=== PATIENT | female | born 1955 | race Caucasian/White ===

== ENCOUNTER 2016-11-02 12:14 | Day surgery (SDC) | payer MEDICARE, BC ==
[~2016-11-02 12:14] MED LIST: CEFAZOLIN 2 Gram 2 GM/50 ML BAG IVPB ONE
[2016-11-02] MEDS ORDERED: *PACU ONLY* KETAMINE HCL 10 MG/ML (20ML) VIAL IV ONE (14:00)
[2016-11-02] MEDS ORDERED: FENTANYL PF 100MCG/2ML VIAL IV ONE (14:00)
[2016-11-02] MEDS ORDERED: SEVOFLURANE 250 ML INH ONE (14:00)
[2016-11-02] MEDS ORDERED: LIDOCAINE 2% MDV (20MG/ML) 20ML VIAL IV ONE (14:00)
[2016-11-02] MEDS ORDERED: TRAMADOL HCL 50 MG TABLET PO ONE (14:00)
[2016-11-02] MEDS ORDERED: PROPOFOL 10 MG/ML VIAL IV ONE (14:00)
--- NOTE | 2016-11-04 08:30 | Operative Note ---
DATE OF SURGERY: 11/02/2016. PREOPERATIVE DIAGNOSIS: Urethral stricture. POSTOPERATIVE DIAGNOSIS: Urethral stricture and bladder tumor. OPERATION: Cystoscopy, urethral dilatation, and bladder biopsy, removal and fulguration of bladder tumor 1 cm. Anesthesia: General. PROCEDURE: Preop informed consent was obtained. Antibiotics were given. Sedation was administered. The patient was brought to the operating room, given general anesthetic, carefully placed in lithotomy position with genitalia prepped and draped sterilely. Cystoscopy was then performed. I could not advance the 22 Libyan cystoscope into the urethra due to the stricture formation. Therefore, Ofelia sounds were then used to calibrate the urethra gently and carefully starting at size of [address] up to 28 Libyan, and once this was done, I was able to insert the cystoscope and inspect the bladder systematically. Upon this evaluation, there is an approximately 1 cm papillary bladder tumor seen at the left trigone lateral to the left ureteral orifice. The remainder of the bladder was unremarkable, except for some trabeculation. Cold cup biopsy forceps were used to remove the tumor in its entirety, and the area was then carefully fulgurated to achieve excellent hemostasis and tissue destruction. There was no remaining tumor left to be dealt with, and again the remainder of the urothelium showed no evidence of any other abnormality. The left orifice was kept unharmed and was effluxing clear urine at the end of the procedure. The bladder was emptied. Patient was transferred to recovery in stable condition. DISCHARGE INSTRUCTIONS: Patient will follow up to review pathology report and symptoms in 2 weeks. Lauri Ariza M.D. CC: R[facility]
== END 2016-11-02 16:05 | disposition home or self-care (01) ==
LOC: SUR 12:14
PROVIDERS: ATTEND Urology
DX: C67.0 Malignant neoplasm of trigone of bladder (principal); N35.028 Other post-traumatic urethral stricture, female; I10 Essential (primary) hypertension; E78.00 Pure hypercholesterolemia, unspecified
CPT/HCPCS: 52234; 00912; 88305; J3010; J0690

== ENCOUNTER 2017-02-01 12:54 | Day surgery (SDC) | payer MEDICARE, BC ==
[~2017-02-01 12:54] MED LIST changes: +FAMOTIDINE 20MG TABLET PO ONE; +MECLIZINE 25 MG TABLET PO ONE; +METOCLOPRAMIDE 10 MG TABLET PO ONE
[2017-02-01] MEDS ORDERED: ALFENTANIL HCL 500 MCG/1ML, 2ML AMP IV ONE (14:00)
[2017-02-01] MEDS ORDERED: *PACU ONLY* KETAMINE HCL 10 MG/ML (20ML) VIAL IV ONE (14:00)
[2017-02-01] MEDS ORDERED: PROPOFOL 10 MG/ML VIAL IV ONE (14:00)
--- NOTE | 2017-02-09 10:10 | Operative Note ---
DATE OF SURGERY: 02/01/2017 PREOPERATIVE DIAGNOSIS: Urethral stricture and bladder cancer. POSTOPERATIVE DIAGNOSIS: Urethral stricture and bladder cancer. OPERATION: Cystoscopy, urethral dilatation, and bilateral retrograde pyelograms. Anesthesia: Sedation. PROCEDURE: Preop informed consent was obtained. Antibiotics were given. Sedation was administered. The patient was brought to the operating room, placed in lithotomy position with genitalia prepped and draped sterilely. The urethra was already stenotic from her last procedure and required dilating with Lantigua sounds to 26 Swedish, which was done without difficulty. Cystoscopy could then be performed. The bladder was then carefully inspected. No abnormality was seen and the ureteral orifices had normal appearance and positioning. There was no evidence of any recurrent bladder tumor, and there is a well-healed site from prior TURBT. Bilateral retrograde pyelograms were performed injected contrast into both ureters and obtaining images through mobile C-arm fluoroscopy. Recognizing the limitations of mobile fluoroscopy in recognizing fine detail, there was no gross evidence of any upper tract filling defect, stricture, or dilatation, and drainage was prompt bilaterally. The bladder was then drained and the scope was removed. The procedure was terminated. The patient was transferred to recovery in stable condition. PLAN: The patient will be scheduled for her next surveillance in another 3 months for similar procedure. CC: Dr. Jayce NEGRO
== END 2017-02-01 16:00 | disposition home or self-care (01) ==
LOC: SUR 12:54
PROVIDERS: ATTEND Urology
DX: Z08 Encounter for follow-up examination after completed treatment for malignant neoplasm (principal); N35.9 Urethral stricture, unspecified; Z85.51 Personal history of malignant neoplasm of bladder; E78.00 Pure hypercholesterolemia, unspecified
CPT/HCPCS: 52005; 00910; 76000; J0690

== ENCOUNTER → 2017-12-12 | Day surgery (SDC) | payer MEDICARE, BC ==
[~2017-12-12] MED LIST changes: +ACETAMINOPHEN 1,000 MG/100 ML BTL IV ONE; +BUPIVACAINE 0.25% W/EPI MPF 30ML VIAL IVP ONE; +CEFAZOLIN 1 Gram 1 GM/50 ML BAG IVPB ONE; -CEFAZOLIN 2 Gram 2 GM/50 ML BAG IVPB ONE; -FAMOTIDINE 20MG TABLET PO ONE; +FENTANYL PF 100MCG/2ML VIAL IV ONE; +LIDOCAINE 1% MDV (10MG/ML) 20ML VIAL SQ ONE; -MECLIZINE 25 MG TABLET PO ONE; -METOCLOPRAMIDE 10 MG TABLET PO ONE; +MIDAZOLAM HCL 2MG/2ML VIAL IV ONE; +PROPOFOL 10 MG/ML VIAL IV ONE; +VANCOMYCIN HCL 1,000 MG in DEXTROSE 5 % IN WATER 250 ML IVPB ONE
--- NOTE | 2017-12-13 08:20 | Operative Note ---
DATE OF SURGERY: 12/12/2017 Surgeon: Tomy Alexander DO PREOPERATIVE DIAGNOSES: 1. Chronic low back pain. 2. Bilateral episacral lipomas. POSTOPERATIVE DIAGNOSES: 1. Chronic low back pain. 2. Bilateral episacral lipomas. OPERATION: Excision of bilateral upper epilipomas. Indication: The patient is a 62-year-old female who has had chronic low back pain. She did have bilateral episacral lipomas. We did discuss excision of these. Risks, benefits, and alternatives were discussed. Risks include bleeding, infection, the possibility that this will not alleviate her back pain. This was touched on and stressed in detail. The patient was aware. Thereafter, consent was signed and questions answered. PROCEDURE: The patient was taken to the operating room and placed in a supine position, rotated into prone position. Local IV sedation was given per the department of anesthesia. The patient's back was prepped and draped in the usual fashion. The area over each region was anesthetized with a total of 8 mL of 0.25% Sensorcaine with epinephrine. Starting on the patient's right, a 3 cm incision was made. This was carried down through the subcutaneous tissues to the fascia where a large episacral lipoma was encountered. This was dissected free from surrounding tissue with cautery and blunt dissection. This was 4 x 4 cm and passed off the field. The wound was then closed with 3-0 and 4-0 Vicryl. Attention was now turned to the patient's opposite side where an identical procedure was done. Pathology was the same as well as the size. She tolerated the procedure well. Final pathology pending. CC: [facility]kee [facility]
== END | disposition home or self-care (01) ==
LOC: SUR 11:54
PROVIDERS: ATTEND Surgery
DX: M54.5 Low back pain (principal); E78.00 Pure hypercholesterolemia, unspecified; I10 Essential (primary) hypertension; F43.10 Post-traumatic stress disorder, unspecified; J44.9 Chronic obstructive pulmonary disease, unspecified; K44.9 Diaphragmatic hernia without obstruction or gangrene; F90.9 Attention-deficit hyperactivity disorder, unspecified type
CPT/HCPCS: 11406; 12034; 00300; J3370; J3010; J7060

== ENCOUNTER 2018-01-31 14:08 | Day surgery (SDC) | payer MEDICARE, BC ==
[~2018-01-31 14:08] MED LIST changes: -BUPIVACAINE 0.25% W/EPI MPF 30ML VIAL IVP ONE; -CEFAZOLIN 1 Gram 1 GM/50 ML BAG IVPB ONE; +CEFAZOLIN 2 Gram 2 GM/50 ML BAG IVPB ONE; -FENTANYL PF 100MCG/2ML VIAL IV ONE; -LIDOCAINE 1% MDV (10MG/ML) 20ML VIAL SQ ONE; -MIDAZOLAM HCL 2MG/2ML VIAL IV ONE; -PROPOFOL 10 MG/ML VIAL IV ONE; -VANCOMYCIN HCL 1,000 MG in DEXTROSE 5 % IN WATER 250 ML IVPB ONE
[2018-01-31] MEDS ORDERED: PROPOFOL 10 MG/ML VIAL IV ONE (14:09)
[2018-01-31] MEDS ORDERED: LIDOCAINE 2% MDV (20MG/ML) 20ML VIAL IV ONE (14:09)
[2018-01-31] MEDS ORDERED: MIDAZOLAM HCL 2MG/2ML VIAL IV ONE (14:09)
[2018-01-31] MEDS ORDERED: FENTANYL PF 100MCG/2ML VIAL IV ONE (14:09)
--- NOTE | 2018-02-01 14:20 | Operative Note ---
DATE OF SURGERY: 01/31/2018 PREOPERATIVE DIAGNOSIS: Personal history of bladder cancer and urethral stenosis. POSTOPERATIVE DIAGNOSIS: Personal history of bladder cancer and urethral stenosis. OPERATION: Cystoscopy, urethral dilation, bilateral retrograde pyelograms. Anesthesia: Sedation. Surgeon: Lauri Ariza MD Emergency Communications Dispatcher: None. COMPLICATIONS: No intraoperative complications noted. SPECIMENS SENT: Urine cytology. PROCEDURE: Preop informed consent was obtained. Antibiotics were given. Sedation was administered. The patient was brought to the operating room and carefully placed in lithotomy position with genitalia prepped and draped sterilely. The urethra was stenotic and would not accept a 22-Nicaraguan cystoscope. Kevin sounds were used to calibrate the urethra to 24-Nicaraguan without difficulty. Cystoscope was then inserted. The bladder was inspected systematically. The ureteral orifices had normal appearance and positioning. There was no obvious tumor seen but a urine cytology was sent with urine aspirated through the cystoscope and passed off the field. Bilateral retrograde pyelograms were performed injecting contrast in a retrograde fashion through both ureteral orifices, and live C-arm fluoroscopic images were obtained. Keeping in mind the fine detail limitations of mobile fluoroscopy, both upper tracts appeared unremarkable with no evidence of filling defects, stricture, or dilatation and drainage was prompt bilaterally. The bladder was then emptied. The scope was withdrawn. The patient was awakened and transferred to recovery in stable condition. PLAN: I have asked the patient to follow up in 2 weeks to review the urine cytology results and determine our next procedure. CC: [facility] Mckee [facility]
== END 2018-01-31 18:15 | disposition home or self-care (01) ==
LOC: SUR 14:08
PROVIDERS: ATTEND Urology
DX: N35.9 Urethral stricture, unspecified (principal); Z85.51 Personal history of malignant neoplasm of bladder; E78.00 Pure hypercholesterolemia, unspecified; I10 Essential (primary) hypertension; J44.9 Chronic obstructive pulmonary disease, unspecified; J45.909 Unspecified asthma, uncomplicated
CPT/HCPCS: 52281; 00910; 76000; Q9958; J3010; J0690

== ENCOUNTER 2018-08-04 07:07 | Inpatient (IN) | payer MEDICARE, BC ==
[2018-08-04] MEDS ORDERED: ALBUTEROL SULFATE (0.083%) 2.5 MG/3 ML NEB INH ONE (07:11)
[2018-08-04] MEDS ORDERED: IPRATROPIUM/ALBUTEROL (0.5MG/3MG) NEB INH ONE ×3 (07:11→07:16)
[2018-08-04] MEDS ORDERED: METHYLPREDNISOLONE PF 125MG/VIAL IVP ONE (07:11)
[2018-08-04] MEDS ORDERED: MAGNESIUM SULFATE 16 MEQ in 0.9 % SODIUM CHLORIDE 100ML 100 ML IV ONE (07:13)
[2018-08-04] MEDS ORDERED: LORAZEPAM 2 MG/ML VIAL IV ONE (07:18)
[2018-08-04 07:27] LABS: HEMATOCRIT 36.6 % (35.0-47.0); HEMOGLOBIN 11.6 gm/dl (11.6-16.0); MEAN CELL VOLUME 97.9 fl (81-97); MEAN CORPUSCULAR HGB CONC 31.7 g/dl (32-36); MEAN PLATELET VOLUME 8.6 fl (7.4-10.4); PLATELET COUNT 377 K/uL (130-400); RED BLOOD COUNT 3.74 M/uL (3.80-5.40); RED CELL DISTRIBUTION WIDTH 12.3 % (11.5-14.5); WHITE BLOOD COUNT W/O DIFF 18.7 K/uL (4.2-12.2)
--- NOTE | 2018-08-04 07:29 | Emergency Department Record ---
History of Present Illness - General Chief Complaint: Shortness of breath Stated Complaint: TROUBLE BREATHING Time Seen by Provider: 08/04/18 07:10 Source: Patient Mode of Arrival: EMS Limitations: No limitations - History of Present Illness Initial Comments: The patient is here by EMS due to SOB for the last 2-3 hours. She had been coughing up phlegm for a day and then the SOB came on this AM. She denies any CP but presently is very anxious and is not able to give a full history. The patient does have a hx of COPD and is on home O2. 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 Complaint: Shortness of breath Onset/Timin -: Hour(s) Known History Of: COPD Treatments Prior to Arrival: Bronchodilator Treatment Prior to Arrival Comment:: Nely NMT - Related Data Home Oxygen Therapy: Yes Home Medications Medication Instructions Recorded Confirmed Last Taken Metaxalone 800 mg PO DAILY 08/04/18 08/04/18 Unknown Previous Rx's Medication Instructions Recorded Pantoprazole Sodium [Protonix] 40 mg PO BID tablet. 01/21/16 Allergies Allergy/AdvReac Type Severity Reaction Status Date / Time codeine Allergy Intermediate NAUSEA Verified 12/02/17 13:11 ibuprofen AdvReac Intermediate NAUSEA Verified 12/02/17 13:11 Travel Screening - Travel/Exposure Within Last 30 Days Have you traveled within the last 30 days?: No - Travel Symptoms Symptom Screening: None Review of Systems Constitutional: Reports: Fever. Denies: Chills Eyes: Denies: Eye discharge ENT: Denies: Congestion Respiratory: Reports: Cough, Dyspnea Cardiovascular: Denies: Arrhythmia, Chest pain Endocrine: Reports: Fatigue Gastrointestinal: Denies: Nausea Genitourinary: Denies: Dysuria Musculoskeletal: Denies: Arthralgia Skin: Denies: Bruising Past Medical History - SOCIAL HISTORY Smoking Status: Former smoker Alcohol Use: None - RESPIRATORY Hx Respiratory Disorders: Yes Hx Asthma: Yes Hx Bronchitis: Yes (December 2016) Hx COPD: Yes Hx Dyspnea: Yes Hx Pneumonia: Yes - CARDIOVASCULAR Hx Cardio Disorders: Yes Hx Hypertension: Yes (x 3 months new med good control) - NEURO Hx Neuro Disorders: Yes Hx Dizziness: Yes (when get up too fast) Comment:: last eye exam-no glaucoma - GI Hx GI Disorders: Yes Hx Abdominal Pain: (denies) Hx Reflux: Yes Hx Hiatal Hernia: Yes (SLEEPS WITH HEAD UP SOME) Comment:: had "blockage in esophagus"-last year in hospital for few days-NG tube - Hx Genitourinary Disorders: Yes Hx Bladder Problem: Yes (has CA in bladder) Comment:: FREQUENCY - ENDOCRINE Hx Endocrine Disorders: No - MUSCULOSKELETAL Hx Musculoskeletal Disorders: Yes Hx Arthritis: Yes (hands,back & shoulders) Hx Fibromyalgia: Yes (ONSET 3-4 YEARS) Comment:: OSTEOARTHRITIS KNEES - PSYCH Hx Psych Problems: Yes Hx Anxiety: Yes Hx Depression: Yes - HEMATOLOGY/ONCOLOGY Hx Hematology/Oncology Disorders: Yes Hx Anemia: Yes (INTERMITTENT) Hx Cancer: Yes (BLADDER) Hx Blood Transfusions: Yes Comment:: RECHECK TUMOR Family Medical History Any Significant Family History?: Yes Hx Cancer: Father Hx Heart Disease: Mother, Brother/Sister Physical Exam - General General Appearance: Alert, Moderate distress, Anxious - Head Head exam: Atraumatic, Normocephalic - Eye Eye exam: Normal appearance, PERRL - Neck Neck exam: Normal inspection, Full ROM. negative: Tenderness - Respiratory Respiratory exam: Accessory muscle use, Decreased breath sounds, Respiratory distress, Wheezes. negative: Normal lung sounds bilaterally - Cardiovascular Cardiovascular Exam: Normal heart sounds, Tachycardia - GI/Abdominal GI/Abdominal exam: Soft, Normal bowel sounds. negative: Tenderness - Extremities Extremities exam: Normal inspection, Full ROM, Normal capillary refill. negative: Tenderness - Neurological Neurological exam: Alert. negative: Motor sensory deficit - Psychiatric Psychiatric exam: Anxious - Skin Skin exam: negative: Rash Course Vital Signs 08/04/18 08/04/18 08/04/18 07:10 07:11 07:17 Temperature 98.4 F Pulse Rate 126 H Pulse Rate [ 116 H [employer] ] Respiratory 24 36 H Rate Blood Pressure 197/107 [Right Arm] Pulse Ox 97 100 - Reevaluation(s) Reevaluation #1: The patient is doing a lot better at this time. Her biox is 99% on 35% by BIPAP. The patient is awake and alert and much more comfortable. Her RR is improved and she is moving air better. Reevaluation #2: The patient continues to improve. Her RR is decreasing and HR is now 110 with a very stable BP. The patient's biox is 99% on 35% by BIpap. 08/04/18 07:37 Reevaluation #3: The patient continues to improve. We are treating her for pneumonia due to the fever and LLL infiltrate. I did discuss the plan with the patient and and both would like to be transferred to [facility] due to her Research Associate Policy working there. 08/04/18 07:53 Reevaluation #4: The patient is clinically doing MUCH better and is breathing very easily and comfortably. She is speaking in full sentences with a normal RR and no labored breathing. Due to the fact she is so much improved I do feel she is stable for admission here at [facility]. I then did discuss the case with Regina ([employer]) and she does accept the admission for Dr. Lynch. On exam now the patient is moving air MUCH better with no wheezing or rhonchi. 08/04/18 08:47 Medical Decision Making - Data Complexity MDM Data: Labs Ordered and/or Reviewed, X-Ray Ordered and/or Reviewed, EKG Ordered and/or Reviewed - Lab Data Result diagrams: 08/04/18 07:16 08/04/18 07:16 - EKG Data -: EKG Interpreted by Ma EKG: No Acute Changes, Normal EKG - Radiology Data Radiology results: Report reviewed (CXR: L lower lobe infiltrate.) Critical Care Time Critical Care Time: Yes Total Critical Care Time: 45 Critical Care Time: The patient was treated for a total of 45 minutes of critical care time. Disposition Disposition: Admit Clinical Impression: Pneumonia Qualifiers: Pneumonia type: due to unspecified organism Laterality: unspecified laterality Lung location: unspecified part of lung Qualified Code(s): J18.9 - Pneumonia, unspecified organism Disposition: Still a Patient at [facility] Decision to Admit: Admit from ER Decision to Admit Date: 08/04/18 Decision to Admit Time: 09:12 Accepting Physician: Syed Time Discussed w/Accepting Physician: 08:47 Condition: (2) Stable Time of Disposition: 08:47 Quality - Quality Measures Quality Measures: N/A - Blood Pressure Screening View Details: Yes Does Patient Have Any of the Following: No Blood Pressure Classification: Pre-Hypertensive BP Reading Systolic Measurement: 129 Diastolic Measurement: 73 Screening for High Blood Pressure: < Pre-Hypertensive BP, F/U Documented > [ [id number]] Pre-Hypertensive Follow-up Interventions: Referral to alternative/primary care provider.
[2018-08-04 07:31] LABS: BLOOD UREA NITROGEN 9 mg/dL (8-23); CREATININE 0.6 mg/dL (0.5-0.9); EST GLOMERULAR FILTRATION RATE > 60 mL/min
[2018-08-04 07:32] LABS: TOTAL PROTEIN 7.7 g/dL (6.6-8.7)
[2018-08-04] MEDS ORDERED: AZITHROMYCIN 500 MG in 0.9 % SODIUM CHLORIDE 250ML 250 ML IVPB ONE (07:32)
[2018-08-04] MEDS ORDERED: CEFTRIAXONE 1GM/50ML BAG 1 GM/50 ML BAG IVPB ONE (07:32)
[2018-08-04 07:34] LABS: GLUCOSE,RANDOM 162 mg/dL (74-109)
[2018-08-04 07:36] LABS: ALT/SGPT 10 U/L (<33); AST/SGOT 18 U/L (10.0-35.0)
[2018-08-04 07:37] LABS: ALB/GLOB RATIO 1.1 (1.1-1.8); ALKALINE PHOSPHATASE 83 U/L (35-104)
[2018-08-04 07:41] LABS: ARTERIAL BLD GAS O2 SATURATION 97.3 % (95-98); ARTERIAL BLOOD GAS BASE EXCESS 4.5 mmol/L (-2 - 3); ARTERIAL BLOOD GAS HCO3 30.9 mmol/L (18-23); ARTERIAL BLOOD GAS PCO2 58.4 mmHg (35-48); ARTERIAL BLOOD GAS pH 7.34 (7.35-7.45); CARBOXYHEMOGLOBIN 1.3 % (0-1.5); O2 HEMOGLOBIN 96.1 % vol (94-99); TOTAL HEMOGLOBIN 11.1 g/dl (11.6-16)
[2018-08-04] MEDS ORDERED: ACETAMINOPHEN 1,000 MG/100 ML BTL IVPB ONE (07:41)
[2018-08-04 07:45] LABS: ALLEN TEST PASS
[2018-08-04] MEDS ORDERED: ACETAMINOPHEN 325 MG TAB PO PRN (10:17)
[2018-08-04] MEDS ORDERED: OXYCODONE/APAP 10MG-325MG TABLET PO SCH (10:17)
[2018-08-04] MEDS ORDERED: TIOTROPIUM BROMIDE 18 MCG IH SCH (10:17)
[2018-08-04] MEDS ORDERED: BECLOMETHASONE DIPROPIONATE IH SCH (10:17)
[2018-08-04] MEDS ORDERED: FORMOTEROL FUMARATE IH SCH (10:17)
[2018-08-04] MEDS ORDERED: METAXALONE 800 MG PO SCH (10:17)
[2018-08-04] MEDS: IPRATROPIUM/ALBUTEROL (0.5MG/3MG) NEB INH SCH ×4 (11:00→22:50)
[2018-08-04] MEDS ORDERED: QUETIAPINE FUMARATE 25 MG TABLET PO PRN (11:26)
[2018-08-04] MEDS ORDERED: ALBUTEROL SULFATE (0.083%) 2.5 MG/3 ML NEB INH PRN (11:27)
[2018-08-04] MEDS: OXYCODONE HCL 5 MG TABLET PO SCH ×3 (12:20→21:23)
[2018-08-04] MEDS: VENLAFAXINE ER 75 MG CAPSULE PO SCH ×2 (12:20→21:23)
[2018-08-04] MEDS: PANTOPRAZOLE SODIUM 40 MG TABLET PO SCH ×2 (12:20→21:23)
[2018-08-04] MEDS: CYCLOBENZAPRINE 10MG TABLET PO SCH ×2 (12:20→21:23)
[2018-08-04] MEDS ORDERED: BENZONATATE 100 MG CAPSULE PO PRN (15:34)
--- NOTE | 2018-08-04 20:33 | History & Physical ---
History of Present Illness - Date of Service Date of Service for History & Physical: 08/05/18 - History of Present Illness Admitting Diagnosis: 1. Acute Bilateral Pneumonia with COPD Exacerbation. History of Present Illness: Ms. Delvalle is a 63 year-old female who presented to the ED on 07/07/18 via EMS due to shortness of breath for 2-3 hours. She had been coughing up phlegm for a day and then the SOB came on this AM. She denied any CP but presently is very anxious and is not able to give a full history. The patient does have a hx of COPD and is on 3L home O2. 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 Her history includes: ex-smoker, asthma, COPD, pneumonia, HTN, GERD, hiatal hernia , bladder cancer, arthritis, fibromyalgia, anemia, anxiety and depression. In the ED, her vitals were: BP 197/107, HR 126, RR 24, and T 98.4F. She was placed on bipap 35% and her biox improved to 99%, pt reported improved comfort. ABG: pCO2 58.4, pO2 82.0, Labs demonstrated WBC 18.7, procalcitonin 0.039, CRP 2.275, BNP 232.3, neg troponin. Chest xray revealed LLL pneumonia. EKG showed no acute changes. Pt. was admitted for treatment of her pneumonia, COPD exacerbation. 08/04/18: Pt. is resting in bed, she does appear to be in mild resp distress. VSS. Plan to continue duo nebs q4h, rocephin 1gm q12h, zithromax 500mg PO, IV steroids. 08/05/18: Pt. is resting in bed. She reports some improvement in her symptoms. Will change abx and steroids to PO today, continue duo nebs. Added tessalon perles for cough. PCP: Dr. Harding Travel Screening - Travel/Exposure Within Last 30 Days Have you traveled within the last 30 days?: No - Travel/Exposure Within Last Year Have you traveled outside the [place] in the last year?: No - Additonal Travel Details Have you been exposed to anyone with a communicable illness?: No - Travel Symptoms Symptom Screening: None Review of Systems Constitutional: Reports: Fever. Denies: Chills Eyes: Denies: Eye discharge ENT: Denies: Congestion Respiratory: Reports: Cough, Dyspnea Cardiovascular: Denies: Arrhythmia, Chest pain Endocrine: Reports: Fatigue Gastrointestinal: Denies: Nausea Genitourinary: Denies: Dysuria Musculoskeletal: Denies: Arthralgia Skin: Denies: Bruising Past Medical History - SOCIAL HISTORY Smoking Status: Former smoker Alcohol Use: None Drug Use: None - RESPIRATORY Hx Respiratory Disorders: Yes Hx Asthma: Yes Hx Bronchitis: Yes (December 2016) Hx COPD: Yes Hx Dyspnea: Yes Hx Pneumonia: Yes - CARDIOVASCULAR Hx Cardio Disorders: Yes Hx Hypertension: Yes (x 3 months new med good control) - NEURO Hx Neuro Disorders: Yes Hx Dizziness: Yes (when get up too fast) Comment:: last eye exam-no glaucoma - GI Hx GI Disorders: Yes Hx Abdominal Pain: (denies) Hx Reflux: Yes Hx Hiatal Hernia: Yes (SLEEPS WITH HEAD UP SOME) Comment:: had "blockage in esophagus"-last year in hospital for few days-NG tube - Hx Genitourinary Disorders: Yes Hx Bladder Problem: Yes (has CA in bladder) Comment:: FREQUENCY - ENDOCRINE Hx Endocrine Disorders: No - MUSCULOSKELETAL Hx Musculoskeletal Disorders: Yes Hx Arthritis: Yes (hands,back & shoulders) Hx Fibromyalgia: Yes (ONSET 3-4 YEARS) Comment:: OSTEOARTHRITIS KNEES - PSYCH Hx Psych Problems: Yes Hx Anxiety: Yes Hx Depression: Yes - HEMATOLOGY/ONCOLOGY Hx Hematology/Oncology Disorders: Yes Hx Anemia: Yes (INTERMITTENT) Hx Cancer: Yes (BLADDER) Hx Blood Transfusions: Yes Comment:: RECHECK TUMOR Family Medical History Any Significant Family History?: Yes Hx Cancer: Father Hx Heart Disease: Mother, Brother/Sister H&P Meds/Allergies - Allergies Allergies: Allergies Allergy/AdvReac Type Severity Reaction Status Date / Time codeine Allergy Intermediate NAUSEA Verified 12/02/17 13:11 ibuprofen AdvReac Intermediate NAUSEA Verified 12/02/17 13:11 - Home Medications Home Medications Medication Instructions Recorded Confirmed Last Taken Dextroamphetamine/Amphetamine 60 mg PO DAILY 08/04/18 08/04/18 Unknown [Dextroamp-Amphetamin 30 mg Tab] Indacaterol Maleate [Arcapta 75 mcg INH DAILY 08/04/18 08/04/18 Unknown Neohaler] Metaxalone 800 mg PO BID 08/04/18 08/04/18 Unknown Oxycodone HCl 20 mg PO TID 08/04/18 08/04/18 Unknown Quetiapine Fumarate [Seroquel] 50 mg PO BID PRN 08/04/18 08/04/18 Unknown Previous Rx's Medication Instructions Recorded Pantoprazole Sodium [Protonix] 40 mg PO BID tablet. 01/21/16 - Active Medications Active Medications: Current Medications Acetaminophen (Tylenol 325mg) 650 mg PO Q4H PRN PRN Reason: PAIN - MILD(1-4)/FEVER Albuterol Sulfate (Albuterol Sulfate) 2.5 mg INH Q4H PRN PRN Reason: SHORTNESS OF BREATH Albuterol/Ipratropium (Duoneb) 3 ml INH RESP.Q4H.[facility] Last Admin: 08/04/18 18:01 Dose: 3 ml Azithromycin (Zithromax) 500 mg PO DAILY [facility] Benzonatate (Tessalon) 100 mg PO TID PRN PRN Reason: COUGH Last Admin: 08/04/18 15:54 Dose: 100 mg Cyclobenzaprine HCl (Flexeril) 10 mg PO BID [facility] Last Admin: 08/04/18 12:20 Dose: 10 mg Gabapentin (Neurontin) 200 mg PO QHS [facility] CEFTRIAXONE 1GM/50ML BAG (Ceftriaxone 1 Gm-D5w Bag) 1 gm in 50 mls @ 100 mls/ hr IVPB Q12HR [facility] Methylprednisolone Sodium Succinate (Solu-Medrol) 125 mg IVP DAILY [facility] Non-Formulary Medication (Roflumilast [Daliresp]) 500 mcg PO QHS [facility] Oxycodone HCl (Oxy Ir) 20 mg PO TID [facility] Last Admin: 08/04/18 16:09 Dose: 20 mg Pantoprazole Sodium (Protonix) 40 mg PO BID [facility] Last Admin: 08/04/18 12:20 Dose: 40 mg Quetiapine Fumarate (Seroquel) 300 mg PO QHS [facility] Quetiapine Fumarate (Seroquel) 50 mg PO QHS PRN PRN Reason: SLEEP Venlafaxine HCl (Effexor Xr) 150 mg PO BID [facility] Last Admin: 08/04/18 12:20 Dose: 150 mg Physical Exam - Vital Signs Vital Signs: Vital Signs - Last 24 Hrs Temp Pulse Pulse Pulse Resp BP BP 08/04/18 18:01 101 H 20 08/04/18 16:00 97.6 F 101 H 18 112/62 08/04/18 14:15 94 H 20 08/04/18 12:00 97.8 F 104 H 16 111/71 08/04/18 11:10 94 H 20 08/04/18 10:00 98.1 F 99 H 16 135/73 08/04/18 09:52 96 H 24 129/73 08/04/18 09:10 103 H 28 H 118/81 08/04/18 08:36 101.1 F H 109 H 32 H 129/81 08/04/18 08:06 109 H 34 H 117/88 08/04/18 07:46 103.1 F H 111 H 32 H 107/87 08/04/18 07:17 98.4 F 116 H 36 H 197/107 08/04/18 07:11 126 H 24 08/04/18 07:10 Pulse Ox 08/04/18 18:01 96 08/04/18 16:00 94 L 08/04/18 14:15 96 08/04/18 12:00 93 L 08/04/18 11:10 94 L 08/04/18 10:00 93 L 08/04/18 09:52 94 L 08/04/18 09:10 93 L 08/04/18 08:36 94 L 08/04/18 08:06 94 L 08/04/18 07:46 93 L 08/04/18 07:17 100 08/04/18 07:11 08/04/18 07:10 97 - General General Appearance: Alert, Mild distress, Anxious Limitations: No limitations - Head Head exam: Atraumatic, Normocephalic - Eye Eye exam: Normal appearance, PERRL - Neck Neck exam: Normal inspection, Full ROM. negative: Tenderness - Respiratory Respiratory exam: Accessory muscle use, Decreased breath sounds, Respiratory distress, Wheezes. negative: Normal lung sounds bilaterally - Cardiovascular Cardiovascular Exam: Normal heart sounds, Tachycardia - GI/Abdominal GI/Abdominal exam: Soft, Normal bowel sounds. negative: Tenderness - Extremities Extremities exam: Normal inspection, Full ROM, Normal capillary refill. negative: Tenderness - Neurological Neurological exam: Alert. negative: Motor sensory deficit - Psychiatric Psychiatric exam: Anxious - Skin Skin exam: negative: Rash Results - Labs Result Diagrams: 08/05/18 06:00 08/04/18 07:16 Labs Last 24 Hours: Laboratory Results - last 24 hr 08/04/18 08/04/18 08/04/18 07:16 07:16 07:16 WBC 18.7 H RBC 3.74 L Hgb 11.6 Hct 36.6 MCV 97.9 H MCH 31.0 MCHC 31.7 L RDW 12.3 Plt Count 377 MPV 8.6 Neutrophils % 81.0 H Band Neutrophils % 0.0 Eosinophils % Not Reportable Basophils % Not Reportable Lymphocytes 1.0 L Monocytes 6.0 Basophils 0.0 Eosinophil Count 1.0 Puncture Site pCO2 pO2 HCO3 Oxyhemoglobin ABG pH ABG O2 Saturation ABG Base Excess Harpreet Test Carboxyhemoglobin Methemoglobin Total Hemoglobin Actual Respiration Rate FiO2 Sodium 142 Potassium 4.1 Chloride 98 Carbon Dioxide 29.0 Anion Gap 15.0 BUN 9 Creatinine 0.6 Estimated GFR > 60 Random Glucose 162 H Calcium 8.2 L Total Bilirubin 0.20 AST 18 ALT 10 Alkaline Phosphatase 83 Troponin T C-Reactive Protein 2.75 H NT-Pro-B Natriuret Pep 232.30 H Total Protein 7.7 Albumin 4.0 Globulin 3.7 Albumin/Globulin Ratio 1.1 Procalcitonin 08/04/18 08/04/18 08/04/18 07:16 07:16 07:32 WBC RBC Hgb Hct MCV MCH MCHC RDW Plt Count MPV Neutrophils % Band Neutrophils % Eosinophils % Basophils % Lymphocytes Monocytes Basophils Eosinophil Count Puncture Site Right wrist pCO2 58.4 H pO2 82.0 L HCO3 30.9 H Oxyhemoglobin 96.1 ABG pH 7.34 L ABG O2 Saturation 97.3 ABG Base Excess 4.5 H Harpreet Test Pass Carboxyhemoglobin 1.3 Methemoglobin 0.0 Total Hemoglobin 11.1 L Actual Respiration Rate 20.0 H FiO2 35.0 Sodium Potassium Chloride Carbon Dioxide Anion Gap BUN Creatinine Estimated GFR Random Glucose Calcium Total Bilirubin AST ALT Alkaline Phosphatase Troponin T < 0.010 C-Reactive Protein NT-Pro-B Natriuret Pep Total Protein Albumin Globulin Albumin/Globulin Ratio Procalcitonin 0.039 - Imaging and Cardiology Chest x-ray Status: Image reviewed (LLL pneumonia) VTE H&P Assessment - Risk for VTE Risk for VTE: Yes Risk Level: Low Risk Assessment Date: 08/05/18 Risk Assessment Time: 11:55 VTE Orders Placed or Will Be Placed: Yes Plan - Inpatient Certification Inpatient Certification: Admit to inpatient care: Based on my medical assessment, after consideration of patient's risk factors (age, co-morbidities and patient presenting symptoms and acuity), I expect that this patient will remain in the hospital greater than or equal to two midnights and that the services needed warrant inpatient care because: Patient Risk Factors: [Age, co-morbidities] Estimated length of stay: [48-96 hours] The patient may reasonably be expected to be discharged or transferred to a hospital within 96 hours after admission to [facility]. Services needed: [IV abx and steroids, resp treatments, lab and vital sign monitoring] Post hospital care (if known): [] I certify that my determination is in accordance with my understanding of Medicare requirements for reasonable and necessary inpatient services. 08/05/18 11:55 - Detailed Diagnosis and Plan (1) Pneumonia Current Visit: Yes Status: Acute Qualifiers: Pneumonia type: due to unspecified organism Laterality: left Lung location: lower lobe of lung Qualified Code(s): J18.1 - Lobar pneumonia, unspecified organism Base Code: J18.9 - PNEUMONIA, UNSPECIFIED ORGANISM Comment: 08/05/18: -LLL pneumonia on CXR 08/04 -Rocephin 1gm q12h and zithromax 500mg initiated yesterday, will change to cefdinir 300mg bid and zithromax 250mg daily today -NSR on tele, labs improved this morning- WBC 11.3 from 18.7, VSS (2) COPD exacerbation Current Visit: Yes Status: Acute Base Code: J44.1 - CHRONIC OBSTRUCTIVE PULMONARY DISEASE W (ACUTE) EXACERBATION Comment: 08/05/18: -duo nebs q4h -IV steroids changed to PO today -cont abx for LLL pneumonia (3) At risk for deep venous thrombosis Current Visit: Yes Status: Acute Base Code: Z91.89 - OTH PERSONAL RISK FACTORS, NOT ELSEWHERE CLASSIFIED Comment: 08/05/18: -lovenox 40mg sc ordered daily for prophylaxis (4) Full code status Current Visit: Yes Status: Acute Base Code: Z78.9 - OTHER SPECIFIED HEALTH STATUS Comment: 08/05/18: -pt. is a full code
[2018-08-04] MEDS: GABAPENTIN 100 MG CAPSULE PO SCH (21:23)
[2018-08-04] MEDS: QUETIAPINE FUMARATE 100 MG TABLET PO SCH (21:24)
[2018-08-04] MEDS: CEFTRIAXONE 1GM/50ML BAG 1 GM/50 ML BAG IVPB SCH (21:27)
[2018-08-04] MEDS: ROFLUMILAST 500 MCG PO SCH (22:00)
[2018-08-05] MEDS: IPRATROPIUM/ALBUTEROL (0.5MG/3MG) NEB INH SCH ×5 (06:11→21:24)
[2018-08-05 06:26] LABS: HEMATOCRIT 31.4 % (35.0-47.0); HEMOGLOBIN 9.8 gm/dl (11.6-16.0); MEAN CELL VOLUME 97.2 fl (81-97); MEAN CORPUSCULAR HEMOGLOBIN 30.3 pg (27-33); MEAN CORPUSCULAR HGB CONC 31.2 g/dl (32-36); MEAN PLATELET VOLUME 8.8 fl (7.4-10.4); PLATELET COUNT 254 K/uL (130-400); RED BLOOD COUNT 3.23 M/uL (3.80-5.40); RED CELL DISTRIBUTION WIDTH 12.3 % (11.5-14.5); WHITE BLOOD COUNT W/O DIFF 11.3 K/uL (4.2-12.2)
[2018-08-05] MEDS ORDERED: AZITHROMYCIN 500 MG in 0.9 % SODIUM CHLORIDE 250ML 250 ML IVPB SCH (09:15)
[2018-08-05] MEDS: CEFTRIAXONE 1GM/50ML BAG 1 GM/50 ML BAG IVPB SCH (09:52)
[2018-08-05] MEDS: PANTOPRAZOLE SODIUM 40 MG TABLET PO SCH ×2 (09:52→21:13)
[2018-08-05] MEDS: OXYCODONE HCL 5 MG TABLET PO SCH ×3 (09:53→21:13)
[2018-08-05] MEDS: VENLAFAXINE ER 75 MG CAPSULE PO SCH ×2 (09:54→21:12)
[2018-08-05] MEDS: CYCLOBENZAPRINE 10MG TABLET PO SCH ×2 (09:54→21:13)
[2018-08-05] MEDS ORDERED: AZITHROMYCIN 500 MG TABLET PO SCH (10:00)
[2018-08-05] MEDS ORDERED: METHYLPREDNISOLONE PF 125MG/VIAL IVP SCH (10:00)
--- NOTE | 2018-08-05 14:37 | Physician Progress Note ---
Subjective - Date Date of Physician Progress Note: 08/05/18 - Subjective Subjective Comment: Pt. reports some improved work of breathing, she does have productive cough and has provided a sputum specimen for micro. VSS, NSR on tele. Objective - Vital Signs Vital Signs: Vital Signs - Last 24 Hrs Temp Pulse Pulse Pulse Resp BP BP 08/05/18 14:09 99 H 20 08/05/18 12:00 99.4 F 99 H 14 116/69 08/05/18 09:57 94 H 20 08/05/18 08:00 99.2 F 97 H 19 116/69 08/05/18 06:11 97 H 22 08/04/18 23:10 98.9 F 84 85 18 110/62 08/04/18 22:50 95 H 20 08/04/18 21:00 84 84 18 08/04/18 18:01 101 H 20 08/04/18 16:00 97.6 F 101 H 18 112/62 Pulse Ox 08/05/18 14:09 99 08/05/18 12:00 97 08/05/18 09:57 98 08/05/18 08:00 99 08/05/18 06:11 99 08/04/18 23:10 97 08/04/18 22:50 08/04/18 21:00 08/04/18 18:01 96 08/04/18 16:00 94 L - General General Appearance: Alert, Mild distress, Anxious Limitations: No limitations - Head Head exam: Atraumatic, Normocephalic - Eye Eye exam: Normal appearance, PERRL - Neck Neck exam: Normal inspection, Full ROM. negative: Tenderness - Respiratory Respiratory exam: Accessory muscle use, Decreased breath sounds, Respiratory distress, Wheezes. negative: Normal lung sounds bilaterally - Cardiovascular Cardiovascular Exam: Normal heart sounds, Tachycardia - GI/Abdominal GI/Abdominal exam: Soft, Normal bowel sounds. negative: Tenderness - Extremities Extremities exam: Normal inspection, Full ROM, Normal capillary refill. negative: Tenderness - Neurological Neurological exam: Alert. negative: Motor sensory deficit - Psychiatric Psychiatric exam: Anxious - Skin Skin exam: negative: Rash Assessment and Plan - Assessment and Plan (1) Pneumonia Current Visit: Yes Status: Acute Qualifiers: Pneumonia type: due to unspecified organism Laterality: left Lung location: lower lobe of lung Qualified Code(s): J18.1 - Lobar pneumonia, unspecified organism Base Code: J18.9 - PNEUMONIA, UNSPECIFIED ORGANISM Comment: 08/05/18: -LLL pneumonia on CXR 08/04 -Rocephin 1gm q12h and zithromax 500mg initiated yesterday, will change to cefdinir 300mg bid and zithromax 250mg daily today -NSR on tele, labs improved this morning- WBC 11.3 from 18.7, VSS (2) COPD exacerbation Current Visit: Yes Status: Acute Base Code: J44.1 - CHRONIC OBSTRUCTIVE PULMONARY DISEASE W (ACUTE) EXACERBATION Comment: 08/05/18: -duo nebs q4h -IV steroids changed to PO today -cont abx for LLL pneumonia (3) At risk for deep venous thrombosis Current Visit: Yes Status: Acute Base Code: Z91.89 - OTH PERSONAL RISK FACTORS, NOT ELSEWHERE CLASSIFIED Comment: 08/05/18: -lovenox 40mg sc ordered daily for prophylaxis (4) Full code status Current Visit: Yes Status: Acute Base Code: Z78.9 - OTHER SPECIFIED HEALTH STATUS Comment: 08/05/18: -pt. is a full code Results - Labs Result Diagrams: 08/05/18 06:00 08/04/18 07:16 Labs Last 24 Hours: Laboratory Results - last 24 hr 08/05/18 06:00 WBC 11.3 RBC 3.23 L Hgb 9.8 L Hct 31.4 L MCV 97.2 H MCH 30.3 MCHC 31.2 L RDW 12.3 Plt Count 254 MPV 8.8 Neutrophils % 83.0 H Band Neutrophils % 0.0 Eosinophils % Not Reportable Basophils % Not Reportable Lymphocytes 12.0 L Monocytes 5.0 Basophils 0.0 Eosinophil Count 0.0 DVT/PE Assessment - Risk for VTE Risk for VTE: No Risk Level: Low Risk Assessment Date: 08/05/18 Risk Assessment Time: 11:55 VTE Orders Placed or Will Be Placed: Yes - Active Medicaitons Current Medications: Current Medications Acetaminophen (Tylenol 325mg) 650 mg PO Q4H PRN PRN Reason: PAIN - MILD(1-4)/FEVER Albuterol Sulfate (Albuterol Sulfate) 2.5 mg INH Q4H PRN PRN Reason: SHORTNESS OF BREATH Albuterol/Ipratropium (Duoneb) 3 ml INH RESP.Q4H.[facility] Last Admin: 08/05/18 14:07 Dose: 3 ml Azithromycin (Zithromax) 500 mg PO DAILY [facility] Last Admin: 08/05/18 09:54 Dose: 500 mg Benzonatate (Tessalon) 100 mg PO TID PRN PRN Reason: COUGH Last Admin: 08/04/18 15:54 Dose: 100 mg Cyclobenzaprine HCl (Flexeril) 10 mg PO BID [facility] Last Admin: 08/05/18 09:54 Dose: 10 mg Enoxaparin Sodium (Lovenox) 40 mg SQ QHS [facility] Gabapentin (Neurontin) 200 mg PO QHS [facility] Last Admin: 08/04/18 21:23 Dose: 200 mg CEFTRIAXONE 1GM/50ML BAG (Ceftriaxone 1 Gm-D5w Bag) 1 gm in 50 mls @ 100 mls/ hr IVPB Q12HR [facility] Last Infusion: 08/05/18 11:14 Dose: Infused Levothyroxine Sodium (Synthroid) 50 mcg PO DAILYTHY [facility] Methylprednisolone Sodium Succinate (Solu-Medrol) 125 mg IVP DAILY [facility] Last Admin: 08/05/18 09:54 Dose: 125 mg Non-Formulary Medication (Roflumilast [Daliresp]) 500 mcg PO QHS [facility] Last Admin: 08/04/18 22:00 Dose: Not Given Oxycodone HCl (Oxy Ir) 20 mg PO TID [facility] Last Admin: 08/05/18 09:53 Dose: 20 mg Pantoprazole Sodium (Protonix) 40 mg PO BID [facility] Last Admin: 08/05/18 09:52 Dose: 40 mg Quetiapine Fumarate (Seroquel) 300 mg PO QHS [facility] Last Admin: 08/04/18 21:24 Dose: 300 mg Quetiapine Fumarate (Seroquel) 50 mg PO QHS PRN PRN Reason: SLEEP Venlafaxine HCl (Effexor Xr) 150 mg PO BID [facility] Last Admin: 08/05/18 09:54 Dose: 150 mg AMI Plan - Labs Result Diagrams: 08/05/18 06:00 08/04/18 07:16
[2018-08-05] MEDS: LEVOTHYROXINE SODIUM 50 MCG TABLET PO SCH (14:45)
[2018-08-05] MEDS: CEFDINIR 300 MG CAPSULE PO SCH (21:11)
[2018-08-05] MEDS: GABAPENTIN 100 MG CAPSULE PO SCH (21:12)
[2018-08-05] MEDS: QUETIAPINE FUMARATE 100 MG TABLET PO SCH (21:13)
[2018-08-05] MEDS: ENOXAPARIN 40 MG/0.4 ML SYR SQ SCH (21:14)
[2018-08-05] MEDS: ROFLUMILAST 500 MCG PO SCH (21:15)
[2018-08-05] MEDS ORDERED: SENNOSIDES/DOCUSATE SODIUM UD CAPSULE PO PRN (21:26)
[2018-08-06] MEDS: IPRATROPIUM/ALBUTEROL (0.5MG/3MG) NEB INH SCH ×5 (05:57→21:13)
[2018-08-06] MEDS: LEVOTHYROXINE SODIUM 50 MCG TABLET PO SCH (06:08)
[2018-08-06] MEDS: PREDNISONE 20 MG TAB PO SCH (07:54)
[2018-08-06 08:47] LABS: BASO % 0.1 % (0-6); EOS % 0.4 % (0-6); GRAN % 70.4 % (47-80); HEMATOCRIT 32.8 % (35.0-47.0); LYMPH % 23.1 % (16-45); MEAN CELL VOLUME 98.2 fl (81-97); MEAN CORPUSCULAR HEMOGLOBIN 29.9 pg (27-33); MEAN CORPUSCULAR HGB CONC 30.5 g/dl (32-36); PLATELET COUNT 243 K/uL (130-400); RED BLOOD COUNT 3.34 M/uL (3.80-5.40); RED CELL DISTRIBUTION WIDTH 12.4 % (11.5-14.5); WHITE BLOOD COUNT W/O DIFF 7.5 K/uL (4.2-12.2)
[2018-08-06 09:03] LABS: ALBUMIN 3.2 g/dL (4.0-5.0); ALKALINE PHOSPHATASE 57 U/L (35-104); ALT/SGPT 10 U/L (<33); AST/SGOT 16 U/L (10.0-35.0); BILIRUBIN,TOTAL < 0.20 mg/dL (0.2-1.0); BLOOD UREA NITROGEN 12 mg/dL (8-23); CREATININE 0.5 mg/dL (0.5-0.9); EST GLOMERULAR FILTRATION RATE > 60 mL/min; GLUCOSE,RANDOM 140 mg/dL (74-109); TOTAL PROTEIN 6.4 g/dL (6.6-8.7)
[2018-08-06] MEDS ORDERED: DICLOFENAC TOPICAL GEL TOP PRN (09:29)
[2018-08-06] MEDS: OXYCODONE HCL 5 MG TABLET PO SCH ×3 (09:55→21:12)
[2018-08-06] MEDS: PANTOPRAZOLE SODIUM 40 MG TABLET PO SCH ×2 (09:56→21:13)
[2018-08-06] MEDS: CYCLOBENZAPRINE 10MG TABLET PO SCH ×2 (09:56→21:14)
[2018-08-06] MEDS: ACYCLOVIR 200 MG CAPSULE PO SCH ×3 (09:56→21:13)
[2018-08-06] MEDS: AZITHROMYCIN 250 MG TABLET PO SCH (09:56)
[2018-08-06] MEDS: AMPHETAMINE PO SCH (09:57)
[2018-08-06] MEDS: VENLAFAXINE ER 75 MG CAPSULE PO SCH ×2 (09:57→21:12)
[2018-08-06] MEDS: DEXTROAMPHETAMINE PO SCH (09:57)
[2018-08-06] MEDS: CEFDINIR 300 MG CAPSULE PO SCH ×2 (09:57→21:13)
[2018-08-06] MEDS ORDERED: DEXTROAMPHETAMINE PO SCH (10:00)
[2018-08-06] MEDS ORDERED: AMPHETAMINE PO SCH (10:00)
--- NOTE | 2018-08-06 10:51 | Physician Progress Note ---
Subjective - Date Date of Physician Progress Note: 08/06/18 - Subjective Subjective Comment: Pt. continues to improve, slight LL expiratory wheeze. Pt. changed to PO abx today. VSS, NSR on tele. Objective - Vital Signs Vital Signs: Vital Signs - Last 24 Hrs Temp Pulse Pulse Pulse Resp BP Pulse Ox 08/06/18 09:48 101 H 18 98 08/06/18 08:00 97.4 F L 103 H 101 H 24 118/74 97 08/06/18 05:57 90 24 98 08/05/18 21:24 110 H 24 97 08/05/18 21:00 102 H 20 08/05/18 17:23 100 H 20 97 08/05/18 16:00 98.1 F 102 H 18 122/59 97 08/05/18 14:09 99 H 20 99 08/05/18 12:00 99.4 F 99 H 14 116/69 97 - General General Appearance: Alert, Mild distress, Anxious Limitations: No limitations - Head Head exam: Atraumatic, Normocephalic - Eye Eye exam: Normal appearance, PERRL - Neck Neck exam: Normal inspection, Full ROM. negative: Tenderness - Respiratory Respiratory exam: Accessory muscle use, Decreased breath sounds, Respiratory distress, Wheezes. negative: Normal lung sounds bilaterally - Cardiovascular Cardiovascular Exam: Normal heart sounds, Tachycardia - GI/Abdominal GI/Abdominal exam: Soft, Normal bowel sounds. negative: Tenderness - Extremities Extremities exam: Normal inspection, Full ROM, Normal capillary refill. negative: Tenderness - Neurological Neurological exam: Alert. negative: Motor sensory deficit - Psychiatric Psychiatric exam: Anxious - Skin Skin exam: negative: Rash Assessment and Plan - Assessment and Plan (1) Pneumonia Current Visit: Yes Status: Acute Qualifiers: Pneumonia type: due to unspecified organism Laterality: left Lung location: lower lobe of lung Qualified Code(s): J18.1 - Lobar pneumonia, unspecified organism Base Code: J18.9 - PNEUMONIA, UNSPECIFIED ORGANISM Comment: 08/06/18: -LLL pneumonia on CXR 08/04 -Started on cefdinir 300mg bid and zithromax 250mg daily today -NSR on tele, labs demonstrated continued improvement (2) COPD exacerbation Current Visit: Yes Status: Acute Base Code: J44.1 - CHRONIC OBSTRUCTIVE PULMONARY DISEASE W (ACUTE) EXACERBATION Comment: 08/06/18: -duo nebs q4h -Cont. prednisone 40mg daily -cont abx for LLL pneumonia (3) At risk for deep venous thrombosis Current Visit: Yes Status: Acute Base Code: Z91.89 - OTH PERSONAL RISK FACTORS, NOT ELSEWHERE CLASSIFIED Comment: 08/06/18: -lovenox 40mg sc ordered daily for prophylaxis (4) Full code status Current Visit: Yes Status: Acute Base Code: Z78.9 - OTHER SPECIFIED HEALTH STATUS Comment: 08/06/18: -pt. is a full code Results - Labs Result Diagrams: 08/06/18 08:45 08/06/18 08:45 Labs Last 24 Hours: Laboratory Results - last 24 hr 08/06/18 08/06/18 08:45 08:45 WBC 7.5 RBC 3.34 L Hgb 10.0 L Hct 32.8 L MCV 98.2 H MCH 29.9 MCHC 30.5 L RDW 12.4 Plt Count 243 MPV 9.0 Gran % 70.4 Lymphocytes % 23.1 Monocytes % 6.0 Eosinophils % 0.4 Basophils % 0.1 Sodium 144 Potassium 3.6 Chloride 100 Carbon Dioxide 32.0 H Anion Gap 12.0 BUN 12 Creatinine 0.5 Estimated GFR > 60 Random Glucose 140 H Calcium 8.2 L Total Bilirubin < 0.20 L AST 16 ALT 10 Alkaline Phosphatase 57 Total Protein 6.4 L Albumin 3.2 L Globulin 3.2 Albumin/Globulin Ratio 1.0 L DVT/PE Assessment - Risk for VTE Risk for VTE: No Risk Level: Low Risk Assessment Date: 08/05/18 Risk Assessment Time: 11:55 VTE Orders Placed or Will Be Placed: Yes - Active Medicaitons Current Medications: Current Medications Acetaminophen (Tylenol 325mg) 650 mg PO Q4H PRN PRN Reason: PAIN - MILD(1-4)/FEVER Acyclovir (Zovirax) 400 mg PO TID [facility] Stop: 08/15/18 22:01 Last Admin: 08/06/18 09:56 Dose: 400 mg Albuterol Sulfate (Albuterol Sulfate) 2.5 mg INH Q4H PRN PRN Reason: SHORTNESS OF BREATH Albuterol/Ipratropium (Duoneb) 3 ml INH RESP.Q4H.[facility] Last Admin: 08/06/18 09:46 Dose: 3 ml Azithromycin (Zithromax) 250 mg PO DAILY [facility] Last Admin: 08/06/18 09:56 Dose: 250 mg Benzonatate (Tessalon) 100 mg PO TID PRN PRN Reason: COUGH Last Admin: 08/04/18 15:54 Dose: 100 mg Cefdinir (Cefdinir) 300 mg PO BID [facility] Last Admin: 08/06/18 09:57 Dose: 300 mg Cyclobenzaprine HCl (Flexeril) 10 mg PO BID [facility] Last Admin: 08/06/18 09:56 Dose: 10 mg Enoxaparin Sodium (Lovenox) 40 mg SQ QHS [facility] Last Admin: 08/05/18 21:14 Dose: 40 mg Gabapentin (Neurontin) 200 mg PO QHS [facility] Last Admin: 08/05/18 21:12 Dose: 200 mg [facility]) [facility] Last Admin: 08/06/18 06:08 Dose: 50 mcg Non-Formulary Medication (Roflumilast [Daliresp]) 500 mcg PO QHS [facility] Last Admin: 08/05/18 21:15 Dose: 500 mcg Oxycodone HCl (Oxy Ir) 20 mg PO TID [facility] Last Admin: 08/06/18 09:55 Dose: 20 mg Pantoprazole Sodium (Protonix) 40 mg PO BID [facility] Last Admin: 08/06/18 09:56 Dose: 40 mg Adderall 30 Mg Geq (Tablet) 2 each PO DAILY [facility] Last Admin: 08/06/18 09:57 Dose: 2 each Diclofenac Topical (Gel) 1 each TOP ASDIR PRN PRN Reason: anti-inflammatory Pred[facility]one (Pred[facility] 20mg) [facility] Last Admin: 08/06/18 07:54 Dose: 40 mg Quetiapine Fumarate (Seroquel) 300 mg PO QHS [facility] Last Admin: 08/05/18 21:13 Dose: 300 mg Quetiapine Fumarate (Seroquel) 50 mg PO QHS PRN PRN Reason: SLEEP Senna/Docusate Sodium (Senna Plus) 2 each PO BID PRN PRN Reason: CONSTIPATION Last Admin: 08/05/18 21:38 Dose: 2 each Venlafaxine HCl (Effexor Xr) 150 mg PO BID [facility] Last Admin: 08/06/18 09:57 Dose: 150 mg AMI Plan - Labs Result Diagrams: 08/06/18 08:45 08/06/18 08:45
--- NOTE | 2018-08-06 12:07 | RADIOLOGY REPORT ---
DATE: 08/04/2018 at 0721 hours. EXAM: PORTABLE CHEST. HISTORY: Severe difficulty in breathing. TECHNIQUE: A single mobile upright view of the chest is obtained. COMPARISON: Two-view chest radiographic examination dated 12/23/2015. FINDINGS: The heart is not enlarged. No pulmonary venous hypertension is seen. The lungs are hyperinflated consistent with chronic obstructive pulmonary disease. Mixed reticular and alveolar opacities are suggested in the lower lungs, left greater than right, suspicious for atelectasis or infiltrate superimposed on mild, chronic interstitial change. The costophrenic angles are somewhat ill defined with tiny effusions not excluded. No pneumothorax. IMPRESSION: MIXED OPACITIES WITHIN THE LOWER LUNGS, LEFT GREATER THAN RIGHT, CONSISTENT WITH ATELECTASIS, INFILTRATE, OR EDEMA SUPERIMPOSED ON MILD, CHRONIC INTERSTITIAL CHANGE. BORDERLINE CARDIOMEGALY. SMALL PLEURAL EFFUSIONS ARE NOT EXCLUDED. JOB NUMBER: [id number] AND [id number] [facility]
[2018-08-06] MEDS: ENOXAPARIN 40 MG/0.4 ML SYR SQ SCH (21:12)
[2018-08-06] MEDS: ROFLUMILAST 500 MCG PO SCH (21:14)
[2018-08-06] MEDS: QUETIAPINE FUMARATE 100 MG TABLET PO SCH (21:14)
[2018-08-06] MEDS: GABAPENTIN 100 MG CAPSULE PO SCH (21:14)
[2018-08-07] MEDS: LEVOTHYROXINE SODIUM 50 MCG TABLET PO SCH (05:59)
[2018-08-07] MEDS: IPRATROPIUM/ALBUTEROL (0.5MG/3MG) NEB INH SCH ×2 (06:00→09:58)
[2018-08-07 06:54] LABS: BASO % 0.2 % (0-6); EOS % 1.8 % (0-6); GRAN % 57.9 % (47-80); HEMATOCRIT 33.2 % (35.0-47.0); HEMOGLOBIN 10.2 gm/dl (11.6-16.0); LYMPH % 32.1 % (16-45); MEAN CELL VOLUME 97.9 fl (81-97); MEAN CORPUSCULAR HGB CONC 30.7 g/dl (32-36); MEAN PLATELET VOLUME 8.5 fl (7.4-10.4); PLATELET COUNT 261 K/uL (130-400); RED BLOOD COUNT 3.39 M/uL (3.80-5.40); RED CELL DISTRIBUTION WIDTH 12.4 % (11.5-14.5); WHITE BLOOD COUNT W/O DIFF 5.6 K/uL (4.2-12.2)
[2018-08-07 07:14] LABS: ALBUMIN 3.2 g/dL (4.0-5.0); ALKALINE PHOSPHATASE 55 U/L (35-104); ALT/SGPT 10 U/L (<33); AST/SGOT 13 U/L (10.0-35.0); BILIRUBIN,TOTAL < 0.20 mg/dL (0.2-1.0); BLOOD UREA NITROGEN 13 mg/dL (8-23); CREATININE 0.7 mg/dL (0.5-0.9); EST GLOMERULAR FILTRATION RATE > 60 mL/min; GLUCOSE,RANDOM 93 mg/dL (74-109); TOTAL PROTEIN 6.4 g/dL (6.6-8.7)
[2018-08-07] MEDS: PREDNISONE 20 MG TAB PO SCH (08:09)
[2018-08-07] MEDS: CEFDINIR 300 MG CAPSULE PO SCH (09:16)
[2018-08-07] MEDS: VENLAFAXINE ER 75 MG CAPSULE PO SCH (09:17)
[2018-08-07] MEDS: AZITHROMYCIN 250 MG TABLET PO SCH (09:17)
[2018-08-07] MEDS: PANTOPRAZOLE SODIUM 40 MG TABLET PO SCH (09:17)
[2018-08-07] MEDS: OXYCODONE HCL 5 MG TABLET PO SCH (09:18)
[2018-08-07] MEDS: CYCLOBENZAPRINE 10MG TABLET PO SCH (09:18)
[2018-08-07] MEDS: ACYCLOVIR 200 MG CAPSULE PO SCH (09:19)
[2018-08-07] MEDS: AMPHETAMINE PO SCH (09:21)
[2018-08-07] MEDS: DEXTROAMPHETAMINE PO SCH (09:21)
--- NOTE | 2018-08-07 10:51 | Discharge Summary ---
Providers Discharge Summary Date: 08/07/18 Date of admission: 08/04/18 09:22 Expected Date of Discharge: 08/07/18 Attending physician: CHRISTEN JUNE Primary care physician: RODOLFO DAS M.D. Physical Exam - Vital Signs Vital Signs: Vital Signs - Last 24 Hrs Temp Pulse Pulse Pulse Resp BP Pulse Ox 08/07/18 10:20 102 H 18 100 08/07/18 08:41 112 H 97 H 18 08/07/18 08:00 97.8 F 97 H 18 119/78 99 08/07/18 06:00 109 H 22 99 08/06/18 21:13 107 H 24 99 08/06/18 21:00 112 H 24 08/06/18 17:54 101 H 18 98 08/06/18 16:00 98.5 F 109 H 19 123/69 93 L 08/06/18 14:25 98 H 20 98 08/06/18 11:45 99.6 F 101 H 99 H 24 127/73 97 - General General Appearance: Alert, No acute distress, Anxious Limitations: No limitations - Head Head exam: Atraumatic, Normocephalic - Eye Eye exam: Normal appearance, PERRL - Neck Neck exam: Normal inspection, Full ROM. negative: Tenderness - Respiratory Respiratory exam: Wheezes (left lower). negative: Normal lung sounds bilaterally - Cardiovascular Cardiovascular Exam: Normal heart sounds, Tachycardia - GI/Abdominal GI/Abdominal exam: Soft, Normal bowel sounds. negative: Tenderness - Extremities Extremities exam: Normal inspection, Full ROM, Normal capillary refill. negative: Tenderness - Neurological Neurological exam: Alert. negative: Motor sensory deficit - Psychiatric Psychiatric exam: Anxious - Skin Skin exam: negative: Rash Hospitalization - Hospitalization Admission Diagnosis: 1. Acute Bilateral Pneumonia with COPD Exacerbation. - Problem List/Discharge Diagnosis (1) Pneumonia Current Visit: Yes Status: Acute Discharge Diagnosis: Pneumonia type: due to unspecified organism Laterality: left Lung location: lower lobe of lung Qualified Code(s): J18.1 - Lobar pneumonia, unspecified organism Base Code: J18.9 - PNEUMONIA, UNSPECIFIED ORGANISM Comment: 08/07/18: -LLL pneumonia on CXR 08/04 -Continue on cefdinir 300mg bid and zithromax 250mg daily today -NSR on tele, labs demonstrated continued improvement -Will d/c home today (2) COPD exacerbation Current Visit: Yes Status: Acute Base Code: J44.1 - CHRONIC OBSTRUCTIVE PULMONARY DISEASE W (ACUTE) EXACERBATION Comment: 08/07/18: -duo nebs q4h -Cont. prednisone 40mg daily -cont abx for LLL pneumonia -Will d/c home today with continued prednisone and duo nebs (3) At risk for deep venous thrombosis Current Visit: Yes Status: Acute Base Code: Z91.89 - OTH PERSONAL RISK FACTORS, NOT ELSEWHERE CLASSIFIED Comment: 08/07/18: -no prophylaxis for d/c, pt. to return to normal level of activity (4) Full code status Current Visit: Yes Status: Acute Base Code: Z78.9 - OTHER SPECIFIED HEALTH STATUS Comment: 08/07/18: -pt. is a full code - Hospitalization Course Disposition: Home, Self-Care Hospital Course: Ms. Delvalle is a 63 year-old female who presented to the ED on 07/07/18 via EMS due to shortness of breath for 2-3 hours. She had been coughing up phlegm for a day and then the SOB came on this AM. She denied any CP but presently is very anxious and is not able to give a full history. The patient does have a hx of COPD and is on 3L home O2. 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 Her history includes: ex-smoker, asthma, COPD, pneumonia, HTN, GERD, hiatal hernia , bladder cancer, arthritis, fibromyalgia, anemia, anxiety and depression. In the ED, her vitals were: BP 197/107, HR 126, RR 24, and T 98.4F. She was placed on bipap 35% and her biox improved to 99%, pt reported improved comfort. ABG: pCO2 58.4, pO2 82.0, Labs demonstrated WBC 18.7, procalcitonin 0.039, CRP 2.275, BNP 232.3, neg troponin. Chest xray revealed LLL pneumonia. EKG showed no acute changes. Pt. was admitted for treatment of her pneumonia, COPD exacerbation. 08/04/18: Pt. is resting in bed, she does appear to be in mild resp distress. VSS. Plan to continue duo nebs q4h, rocephin 1gm q12h, zithromax 500mg PO, IV steroids. 08/05/18: Pt. is resting in bed. She reports some improvement in her symptoms. Will change abx and steroids to PO today, continue duo nebs. Sputum specimen sent for culture today. Added tessalon perles for cough. 08/06/18: Pt. continues to improve, still dyspnic with exertion and LLL wheeze 08/07/18: Pt. continues to improve. Labs stable, NSR on tele, will d/c home today. PCP: Dr. Harding Optical Glass Inspector: Dr. Alcala Procedures: Imaging and X-Rays 08/04/18 07:11 CHEST 1 VIEW [RAD] Stat Cardiology Procedures 08/04/18 07:11 Stock Layer NOW EKG NOW 08/04/18 10:17 Stock Layer .Continuous Abnormal Labs: Abnormal Lab Results 08/04/18 08/04/18 08/04/18 Range/Units 07:16 07:16 07:16 WBC 18.7 H (4.2-12.2) K/uL RBC 3.74 L (3.80-5.40) M/uL Hgb (11.6-16.0) gm/dl Hct (35.0-47.0) % MCV 97.9 H (81-97) fl MCHC 31.7 L (32-36) g/dl Neutrophils % 81.0 H (47-80) % Lymphocytes 1.0 L (16-45) % pCO2 (35-48) mmHg pO2 (83-108) mmHg HCO3 (18-23) mmol/L ABG pH (7.35-7.45) ABG Base Excess (-2 - 3) mmol/L Total Hemoglobin (11.6-16) g/dl Actual Respiration Rate (10-18) /MIN Carbon Dioxide (22-29) mmol/L Random Glucose 162 H (74-109) mg/dL Calcium 8.2 L (8.8-10.2) mg/dL Total Bilirubin (0.2-1.0) mg/dL C-Reactive Protein 2.75 H (<0.5) mg/dL NT-Pro-B Natriuret Pep 232.30 H (<125) pg/mL Total Protein (6.6-8.7) g/dL Albumin (4.0-5.0) g/dL Albumin/Globulin Ratio (1.1-1.8) 08/04/18 08/05/18 08/06/18 Range/Units 07:32 06:00 08:45 WBC (4.2-12.2) K/uL RBC 3.23 L 3.34 L (3.80-5.40) M/uL Hgb 9.8 L 10.0 L (11.6-16.0) gm/dl Hct 31.4 L 32.8 L (35.0-47.0) % MCV 97.2 H 98.2 H (81-97) fl MCHC 31.2 L 30.5 L (32-36) g/dl Neutrophils % 83.0 H (47-80) % Lymphocytes 12.0 L (16-45) % pCO2 58.4 H (35-48) mmHg pO2 82.0 L (83-108) mmHg HCO3 30.9 H (18-23) mmol/L ABG pH 7.34 L (7.35-7.45) ABG Base Excess 4.5 H (-2 - 3) mmol/L Total Hemoglobin 11.1 L (11.6-16) g/dl Actual Respiration Rate 20.0 H (10-18) /MIN Carbon Dioxide (22-29) mmol/L Random Glucose (74-109) mg/dL Calcium (8.8-10.2) mg/dL Total Bilirubin (0.2-1.0) mg/dL C-Reactive Protein (<0.5) mg/dL NT-Pro-B Natriuret Pep (<125) pg/mL Total Protein (6.6-8.7) g/dL Albumin (4.0-5.0) g/dL Albumin/Globulin Ratio (1.1-1.8) 08/06/18 08/07/18 08/07/18 Range/Units 08:45 06:40 06:40 WBC (4.2-12.2) K/uL RBC 3.39 L (3.80-5.40) M/uL Hgb 10.2 L (11.6-16.0) gm/dl Hct 33.2 L (35.0-47.0) % MCV 97.9 H (81-97) fl MCHC 30.7 L (32-36) g/dl Neutrophils % (47-80) % Lymphocytes (16-45) % pCO2 (35-48) mmHg pO2 (83-108) mmHg HCO3 (18-23) mmol/L ABG pH (7.35-7.45) ABG Base Excess (-2 - 3) mmol/L Total Hemoglobin (11.6-16) g/dl Actual Respiration Rate (10-18) /MIN Carbon Dioxide 32.0 H 33.0 H (22-29) mmol/L Random Glucose 140 H (74-109) mg/dL Calcium 8.2 L 8.4 L (8.8-10.2) mg/dL Total Bilirubin < 0.20 L < 0.20 L (0.2-1.0) mg/dL C-Reactive Protein (<0.5) mg/dL NT-Pro-B Natriuret Pep (<125) pg/mL Total Protein 6.4 L 6.4 L (6.6-8.7) g/dL Albumin 3.2 L 3.2 L (4.0-5.0) g/dL Albumin/Globulin Ratio 1.0 L 1.0 L (1.1-1.8) Condition at Discharge: (2) Stable Discharge Diagnosis: LLL Pneumonia, COPD exacerbation VTE Discharge VTE Reason For No Overlap Therapy: Not Indicated Discharge Medications - Discharge Medications Prescriptions: Acyclovir [Zovirax] 400 mg PO TID #21 capsule Azithromycin [Zithromax] 250 mg PO DAILY #3 tab Cefdinir 300 mg PO BID #6 capsule Ipratropium/Albuterol [Duoneb] 3 ml INH RESP.Q4H.WA #30 ampul.neb Prednisone [Prednisone 20Mg] 40 mg PO DAILYWM #6 tab Home Medications: Ambulatory Orders Albuterol Sulfate [Ventolin Hfa] 2 puff IH BID 09/21/15 [Last Taken 09/21/15] Atorvastatin Calcium 40 mg PO QHS 09/21/15 [Last Taken 09/20/15] Beclomethasone Dipropionate [Qvar] 2 puff IH BID 09/21/15 [Last Taken 01/18/16] Gabapentin [Neurontin] 200 mg PO QHS 09/21/15 [Last Taken 09/20/15] Roflumilast [Daliresp] 500 mcg PO QHS 09/21/15 [Last Taken Unknown] Tiotropium [place] [Spiriva] 18 mcg IH DAILY 09/21/15 [Last Taken 09/21/15] Venlafaxine HCl [Effexor Xr] 150 mg PO BID 09/21/15 [Last Taken 09/21/15] Quetiapine Fumarate 300 mg PO QHS 01/19/16 [Last Taken Unknown] Pantoprazole Sodium [Protonix] 40 mg PO BID tablet. 01/21/16 [Last Taken Unknown] Dextroamphetamine/Amphetamine [Dextroamp-Amphetamin 30 mg Tab] 60 mg PO DAILY [Last Taken Unknown] Indacaterol Maleate [Arcapta Neohaler] 75 mcg INH DAILY 08/04/18 [Last Taken Unknown] Metaxalone 800 mg PO BID 08/04/18 [Last Taken Unknown] Oxycodone HCl 20 mg PO TID 08/04/18 [Last Taken Unknown] Quetiapine Fumarate [Seroquel] 50 mg PO BID PRN 08/04/18 [Last Taken Unknown] Levothyroxine Sodium [Synthroid] 50 mcg PO DAILY 08/05/18 [Last Taken 08/04/18 06:00] Acyclovir [Zovirax] 400 mg PO TID #21 capsule 08/07/18 [Last Taken Unknown] Azithromycin [Zithromax] 250 mg PO DAILY #3 tab 08/07/18 [Last Taken Unknown] Cefdinir 300 mg PO BID #6 capsule 08/07/18 [Last Taken Unknown] Ipratropium/Albuterol [Duoneb] 3 ml INH RESP.Q4H.WA #30 ampul.neb 08/07/18 [ Last Taken Unknown] Prednisone [Prednisone 20Mg] 40 mg PO DAILYWM #6 tab 08/07/18 [Last Taken Unknown] Discharge Plan - Discharge Instructions Activity at Discharge: Wear Oxygen At All Times Diet at Discharge: Regular Diet Additional Instructions: Follow up with your PCP within 3-5 days Return to the ED if your symptoms worsen, or for any chest pain Quality Measures - Quality Measures Quality Measures: Documentation of Current Medications in Medical Record, Screening for High Blood Pressure and F/U Documented - Current Medications Quality Measure: Measure #130: Documentation of Current Medications Documentation of Current Medications: <Current Medications Documented/Reviewed> [G8427] - Blood Pressure Screening Quality Measure: Screening for High Blood Pressure and Follow-Up Documented Does Patient Have Any of the Following: Active Dx of HTN Blood Pressure Classification: Pre-Hypertensive BP Reading Systolic Measurement: 129 Diastolic Measurement: 73 Screening for High Blood Pressure: Patient Exclusion, Hx of HTN [G9744] - Elder Abuse Suspicion Index EASI Reference Information: Amina MADRIGAL, Vincent Sagastume, Romeo Edge, Sharad Perkins.Development and validation of a tool to assist physicians identification of elder abuse: The Elder Abuse Suspicion Index (EASI ). Journal of Elder Abuse and Neglect, 2008; 20 (3): 276-300.
[2018-08-07 12:48] LABS: URINE APPEARANCE CLEAR; URINE BILIRUBIN NEGATIVE (NEGATIVE); URINE BLOOD NEGATIVE (NEGATIVE); URINE COLOR YELLOW; URINE GLUCOSE (UA) NEGATIVE (NEGATIVE); URINE KETONE NEGATIVE (NEGATIVE); URINE LEUKOCYTE ESTERASE NEGATIVE (NEGATIVE); URINE NITRITE NEGATIVE (NEGATIVE); URINE PROTEIN NEGATIVE (NEGATIVE); URINE UROBILINOGEN 0.2 E.U./dL (0.20 - 1.00)
== END 2018-08-07 15:22 | disposition home or self-care (01) | DRG 194 ==
LOC: ER 07:07 → MEDSURG 09:22
PROVIDERS: ADMIT Internal Medicine; ATTEND Internal Medicine
DX: J18.9 Pneumonia, unspecified organism (principal); J44.1 Chronic obstructive pulmonary disease with (acute) exacerbation; R06.00 Dyspnea, unspecified; I10 Essential (primary) hypertension; D64.9 Anemia, unspecified; K44.9 Diaphragmatic hernia without obstruction or gangrene; C67.9 Malignant neoplasm of bladder, unspecified; M79.7 Fibromyalgia; M19.90 Unspecified osteoarthritis, unspecified site; Z99.81 Dependence on supplemental oxygen; Z86.14 Personal history of Methicillin resistant Staphylococcus aureus infection; Z87.891 Personal history of nicotine dependence
CPT/HCPCS: 82375; 86140; 80053; 82803; 84145; 84484; 85027; 83880; 71045; 36600; 94660; 93005; 93010; 94644; J2060; J0696; 81003; 85025; 87070; 94640; 94761; 96365; 96366; 96374; 96375; 99223; 99232; 99239; 99285; 99291; J0456; J1650; J2930; J7050; J7512

== ENCOUNTER 2018-08-19 07:43 | Emergency (ER) | payer MEDICARE, BC ==
[2018-08-19] MEDS ORDERED: IPRATROPIUM/ALBUTEROL (0.5MG/3MG) NEB INH ONE (07:49)
[2018-08-19] MEDS ORDERED: METHYLPREDNISOLONE PF 125MG/VIAL IVP ONE (07:49)
[2018-08-19] MEDS ORDERED: LORAZEPAM 2 MG/ML VIAL IV ONE (07:52)
[2018-08-19] MEDS ORDERED: ONDANSETRON HCL IV 4 MG/2 ML VIAL IVP ONE (07:56)
[2018-08-19 08:07] LABS: HEMATOCRIT 37.5 % (35.0-47.0); HEMOGLOBIN 11.6 gm/dl (11.6-16.0); MEAN CELL VOLUME 97.7 fl (81-97); MEAN CORPUSCULAR HEMOGLOBIN 30.2 pg (27-33); MEAN CORPUSCULAR HGB CONC 30.9 g/dl (32-36); MEAN PLATELET VOLUME 8.8 fl (7.4-10.4); PLATELET COUNT 375 K/uL (130-400); RED BLOOD COUNT 3.84 M/uL (3.80-5.40); RED CELL DISTRIBUTION WIDTH 12.6 % (11.5-14.5)
[2018-08-19 08:15] LABS: BLOOD UREA NITROGEN 16 mg/dL (8-23); CREATININE 0.7 mg/dL (0.5-0.9); EST GLOMERULAR FILTRATION RATE > 60 mL/min
[2018-08-19 08:18] LABS: GLUCOSE,RANDOM 136 mg/dL (74-109)
[2018-08-19 08:22] LABS: WHITE BLOOD COUNT W/O DIFF 20.2 K/uL (4.2-12.2)
--- NOTE | 2018-08-19 08:38 | Emergency Department Record ---
History of Present Illness - General Chief Complaint: Shortness of breath Stated Complaint: PAULETTE Time Seen by Provider: 08/19/18 07:44 Source: Patient, EMS Mode of Arrival: EMS Limitations: No limitations - History of Present Illness Initial Comments: pt brought in by ems for sob. pt had breathing treatments in route and bipap. pt is anxious, tachypneic, pursed lip breathing Complaint: Shortness of breath Onset/Timin -: Hour(s) Improves With: Nothing Worsens With: Nothing Known History Of: COPD Associated Symptoms: Cough Treatments Prior to Arrival: Bronchodilator - Related Data Home Oxygen Therapy: Yes Home Oxygen Amount: 3 Liters Previous Rx's Medication Instructions Recorded Pantoprazole Sodium [Protonix] 40 mg PO BID tablet. 01/21/16 Acyclovir [Zovirax] 400 mg PO TID #21 capsule 08/07/18 Azithromycin [Zithromax] 250 mg PO DAILY #3 tab 08/07/18 Cefdinir 300 mg PO BID #6 capsule 08/07/18 Ipratropium/Albuterol [Duoneb] 3 ml INH RESP.Q4H.WA #30 ampul.neb 08/07/18 Prednisone [Prednisone 20Mg] 40 mg PO DAILYWM #6 tab 08/07/18 Allergies Allergy/AdvReac Type Severity Reaction Status Date / Time codeine Allergy Intermediate NAUSEA Verified 08/19/18 07:46 ibuprofen AdvReac Intermediate NAUSEA Verified 08/19/18 07:46 Travel Screening - Travel/Exposure Within Last 30 Days Have you traveled within the last 30 days?: No Review of Systems Reviewed: No additional complaints except as noted below Constitutional: Reports: As per HPI. Denies: Chills, Fever, Malaise, Night sweats, Weakness, Weight change Eyes: Reports: As per HPI. Denies: Eye discharge, Eye pain, Photophobia, Vision change ENT: Reports: As per HPI. Denies: Congestion, Dental pain, Ear pain, Epistaxis , Hearing loss, Throat pain Respiratory: Reports: As per HPI, Cough, Dyspnea, Wheezes. Denies: Hemoptysis, Stridor Cardiovascular: Reports: As per HPI. Denies: Arrhythmia, Chest pain, Dyspnea on exertion, Edema, Murmurs, Orthopnea, Palpitations, Paroxysmal nocturnal dyspnea, Rheumatic Fever, Syncope Endocrine: Reports: As per HPI. Denies: Fatigue, Heat or cold intolerance, Polydipsia, Polyuria Gastrointestinal: Reports: As per HPI. Denies: Abdominal pain, Constipation, Diarrhea, Hematemesis, Hematochezia, Melena, Nausea, Vomiting Genitourinary: Reports: As per HPI. Denies: Abnormal menses, Discharge, Dyspareunia, Dysuria, Frequency, Hematuria, Incontinence, Retention, Urgency Musculoskeletal: Reports: As per HPI. Denies: Arthralgia, Back pain, Gout, Joint swelling, Myalgia, Neck pain Skin: Reports: As per HPI. Denies: Bruising, Change in color, Change in hair/ nails, Lesions, Pruritus, Rash Neurological: Reports: As per HPI. Denies: Abnormal gait, Confusion, Headache, Numbness, Paresthesias, Seizure, Tingling, Tremors, Vertigo, Weakness Psychiatric: Reports: As per HPI. Denies: Anxiety, Auditory hallucinations, Depression, Homicidal thoughts, Suicidal thoughts, Visual hallucinations Hematological/Lymphatic: Reports: As per HPI. Denies: Anemia, Blood Clots, Easy bleeding, Easy bruising, Swollen glands Past Medical History - SOCIAL HISTORY Smoking Status: Former smoker Alcohol Use: None Drug Use: None - RESPIRATORY Hx Respiratory Disorders: Yes Hx Asthma: Yes Hx Bronchitis: Yes (December 2016) Hx COPD: Yes Hx Dyspnea: Yes Hx Pneumonia: Yes Comment:: wears home O2 3L at all times - CARDIOVASCULAR Hx Cardio Disorders: Yes Hx Hypertension: Yes - NEURO Hx Neuro Disorders: Yes Hx Dizziness: Yes Comment:: last eye exam-no glaucoma - GI Hx GI Disorders: Yes Hx Reflux: Yes Hx Hiatal Hernia: Yes (SLEEPS WITH HEAD UP SOME) Comment:: had "blockage in esophagus"-last year in hospital for few days-NG tube - Hx Genitourinary Disorders: Yes Hx Bladder Problem: Yes (has CA in bladder) Comment:: FREQUENCY - ENDOCRINE Hx Endocrine Disorders: No - MUSCULOSKELETAL Hx Musculoskeletal Disorders: Yes Hx Arthritis: Yes (hands,back & shoulders) Hx Fibromyalgia: Yes (ONSET 3-4 YEARS) Comment:: OSTEOARTHRITIS KNEES - PSYCH Hx Psych Problems: Yes Hx Anxiety: Yes Hx Depression: Yes - HEMATOLOGY/ONCOLOGY Hx Hematology/Oncology Disorders: Yes Hx Anemia: Yes (INTERMITTENT) Hx Cancer: Yes (BLADDER) Hx Blood Transfusions: Yes Comment:: RECHECK TUMOR Family Medical History Any Significant Family History?: Yes Hx Cancer: Father Hx Heart Disease: Mother, Brother/Sister Physical Exam - General General Appearance: Alert, Cooperative, Severe distress, Other (pt restless, thrashing) - Head Head exam: Normal inspection - Eye Eye exam: Normal appearance, PERRL, EOMI Pupils: Normal accommodation - ENT ENT exam: Normal exam, Mucous membranes moist, Normal external ear exam, Normal orophraynx Ear exam: Normal external inspection. negative: External canal tenderness Nasal Exam: Normal inspection. negative: Discharge, Sinus tenderness Mouth exam: Normal external inspection, Tongue normal Teeth exam: Normal inspection. negative: Dental caries Throat exam: Normal inspection. negative: Tonsillar erythema, Tonsillar exudate - Neck Neck exam: Normal inspection, Full ROM. negative: Tenderness - Respiratory Respiratory exam: Accessory muscle use, Respiratory distress, Wheezes, Other ( prsed lip breathing, tachypnea) - Cardiovascular Cardiovascular Exam: Normal rhythm, Normal heart sounds, Tachycardia - GI/Abdominal GI/Abdominal exam: Soft, Normal bowel sounds. negative: Tenderness - Rectal Rectal exam: Deferred - exam: Deferred - Extremities Extremities exam: Normal inspection, Full ROM, Normal capillary refill. negative: Tenderness - Back Back exam: Reports: Normal inspection, Full ROM. 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 ] Respiratory 40 H 29 H Rate Blood Pressure 123/103 Blood Pressure 111/64 [Left Arm] Pulse Ox 94 L 99 99 - Reevaluation(s) Reevaluation #1: 08/19/18 08:41 pt sats mid 90s doing somewhat better Reevaluation #2: 08/19/18 10:26 pt is doing better Medical Decision Making - Lab Data Result diagrams: 08/19/18 07:50 08/19/18 07:50 Lab Results 08/19/18 08/19/18 Range/Units 07:50 07:50 WBC 20.2 H* (4.2-12.2) K/uL RBC 3.84 (3.80-5.40) M/uL Hgb 11.6 (11.6-16.0) gm/dl Hct 37.5 (35.0-47.0) % MCV 97.7 H (81-97) fl MCH 30.2 (27-33) pg MCHC 30.9 L (32-36) g/dl RDW 12.6 (11.5-14.5) % Plt Count 375 (130-400) K/uL MPV 8.8 (7.4-10.4) fl Neutrophils % 85.0 H (47-80) % Band Neutrophils % 3.0 (0-5) % Eosinophils % Not Reportable Basophils % Not Reportable Lymphocytes 7.0 L (16-45) % Monocytes 5.0 (0-9) % Sodium 142 (136-145) mmol/L Potassium 4.4 (3.4-4.5) mmol/L Chloride 97 L (98-107) mmol/L Carbon Dioxide 33.0 H (22-29) mmol/L Anion Gap 12.0 (7-16) BUN 16 (8-23) mg/dL Creatinine 0.7 (0.5-0.9) mg/dL Estimated GFR > 60 mL/min Random Glucose 136 H (74-109) mg/dL Calcium 9.1 (8.8-10.2) mg/dL NT-Pro-B Natriuret Pep 207.10 H (<125) pg/mL Critical Care Time Critical Care Time: Yes Total Critical Care Time: 60 Disposition Disposition: Transfer Clinical Impression: Respiratory failure Qualifiers: Chronicity: acute Respiratory failure complication: hypoxia and hypercapnia Qualified Code(s): J96.01 - Acute respiratory failure with hypoxia; J96.02 - Acute respiratory failure with hypercapnia Disposition: [facility] Transfer Transfer To: [facility] Reason For Transfer: resp failure Accepting Physician: issac briggs and edison Time Discussed w/Accepting Physician: 11:15 Forms: Patient Portal Access Quality - Quality Measures Quality Measures: N/A - Blood Pressure Screening Does Patient Have Any of the Following: No Blood Pressure Classification: Hypertensive Reading Systolic Measurement: 123 Diastolic Measurement: 103 Screening for High Blood Pressure: < Pre-Hypertensive BP, F/U Documented > [ G8950] Pre-Hypertensive Follow-up Interventions: Follow-up with rescreen every year.
[2018-08-19 08:49] LABS: ARTERIAL BLD GAS O2 SATURATION 93.1 % (95-98); ARTERIAL BLOOD GAS BASE EXCESS 5.2 mmol/L (-2 - 3); ARTERIAL BLOOD GAS HCO3 32.8 mmol/L (18-23); ARTERIAL BLOOD GAS PCO2 68.8 mmHg (35-48); METHEMOGLOBIN 0.4 % (0.0-1.5); O2 HEMOGLOBIN 91.8 % vol (94-99); TOTAL HEMOGLOBIN 10.6 g/dl (11.6-16)
[2018-08-19 08:50] LABS: ALLEN TEST PASS
[2018-08-19 09:35] LABS: ARTERIAL BLD GAS O2 SATURATION 97.1 % (95-98); ARTERIAL BLOOD GAS BASE EXCESS 6.3 mmol/L (-2 - 3); ARTERIAL BLOOD GAS HCO3 33.2 mmol/L (18-23); ARTERIAL BLOOD GAS PCO2 65.5 mmHg (35-48); ARTERIAL BLOOD GAS pH 7.33 (7.35-7.45); METHEMOGLOBIN 0.8 % (0.0-1.5); O2 HEMOGLOBIN 95.4 % vol (94-99); TOTAL HEMOGLOBIN 10.1 g/dl (11.6-16)
[2018-08-19 09:36] LABS: ALLEN TEST PASS
[2018-08-19] MEDS ORDERED: LEVALBUTEROL HCL 1.25 MG/3 ML INH ONE (10:33)
[2018-08-19] MEDS ORDERED: LEVOFLOXACIN/D5W 750 MG/150 ML BAG IVPB ONE (10:50)
[2018-08-19 11:14] LABS: INFLUENZA A NEGATIVE (NEGATIVE); INFLUENZA B NEGATIVE (NEGATIVE)
--- NOTE | 2018-08-21 20:05 | CT ANGIOGRAM REPORT ---
EXAM: CT ANGIOGRAM CHEST CTA w contrast HISTORY: PATIENT HAS SHORTNESS OF BREATH. TECHNIQUE: Serial axial CT scan of the chest was performed at 2.5 mm intervals from the thoracic inlet to the dome of the diaphragm following the intravenous administration of 100 mL of Omnipaque-350. FINDINGS: Thoracic inlet is unremarkable. Lung windows demonstrate patchy multifocal infiltrates suggesting pneumonia. Emphysematous changes are identified bilaterally. No pneumothorax is noted. Follow-up PA and lateral views of the chest can be obtained until resolution of findings. The heart size and contour is within normal limits. Thoracic aorta demonstrates normal contour, caliber, and flow. There is no CT evidence of a filling defect within the primary and secondary pulmonary vascular tree to suggest a pulmonary embolus. Occasional subcentimeter lymph nodes are identified within the mediastinum, which are likely reactive. There is no CT evidence of mediastinal, hilar, or axillary lymphadenopathy. The chest wall is unremarkable. The visualized liver, spleen, adrenal glands are unremarkable. Large parasagittal hiatal hernia is identified. Bone windows demonstrate no CT evidence of a fracture or dislocation of the visualized osseous structures. Multilevel degenerative changes of the thoracic spine are noted. 1 IMPRESSION: 1. NO CT EVIDENCE OF A PULMONARY EMBOLUS. 2. MULTIFOCAL PATCHY INFILTRATES ARE IDENTIFIED SUPERIMPOSED ON EMPHYSEMATOUS CHANGES SUGGESTING DEVELOPING PNEUMONIA. 3. LARGE PARASAGITTAL HIATAL HERNIA NOTED. JOB NUMBER: [id number] [facility]
== END 2018-08-19 13:00 | disposition short-term general hospital (02) ==
LOC: ER 07:43
DX: J96.01 Acute respiratory failure with hypoxia (principal); J96.02 Acute respiratory failure with hypercapnia; J44.9 Chronic obstructive pulmonary disease, unspecified; I10 Essential (primary) hypertension; Z99.81 Dependence on supplemental oxygen; Z87.891 Personal history of nicotine dependence
CPT/HCPCS: 99291 ×2; 96365; 96366; 96375; 82375; 80048; 82803; 87400; 85379; 85027; 83880; 71275; 94640 ×2; 36600; 94660; 93005; 93010; Q9967; J2405; J1956; J2060; J2930

== ENCOUNTER 2019-03-01 13:14 | Day surgery (SDC) | payer MEDICARE, BC ==
[2019-03-01] MEDS ORDERED: *PACU ONLY* KETAMINE HCL 10 MG/ML (20ML) VIAL IV ONE (13:15)
[2019-03-01] MEDS ORDERED: MIDAZOLAM HCL 2MG/2ML VIAL IV ONE (13:15)
[2019-03-01] MEDS ORDERED: PROPOFOL 10 MG/ML VIAL IV ONE (13:15)
[2019-03-01] MEDS ORDERED: LIDOCAINE VISC 2% 15ML SOLUTION MM ONE (13:15)
[2019-03-01] MEDS ORDERED: FENTANYL PF 100MCG/2ML VIAL IV ONE (13:15)
--- NOTE | 2019-03-02 14:10 | Operative Note ---
OPERATION: 1. ESOPHAGOGASTRODUODENOSCOPY with biopsy. 2. COLONOSCOPY with cold snare polypectomy. PREOPERATIVE DIAGNOSES: 1. Abdominal pain. 2. Dyspepsia. 3. Heartburn. POSTOPERATIVE DIAGNOSES: 1. Nonerosive gastritis. 2. Transverse colon polyp. PROCEDURE: After informed consent was obtained from the patient, she was placed in the left lateral decubitus position in the endoscopy suite, sedated and monitored by the department of anesthesia. A well-lubricated [id number] gastroscope was placed in the posterior oropharynx under direct visualization and passed to the proximal, mid, and distal esophagus. The esophagus in its length was unremarkable. There was a small hiatal hernia noted. The subdiaphragmatic stomach demonstrated mild antral erythema. The pylorus, duodenal bulb, and sweep were unremarkable. J-turn views of the proximal stomach revealed an unremarkable small hiatal hernia. The endoscope was then straightened and antral biopsies were obtained. The endoscope removed through the course of the proximal stomach and esophagus. No new findings noted. Digital rectal examination was unremarkable. A well-lubricated [id number] colonoscope was inserted into the rectum and advanced to the cecum. Preparation quality was good to excellent. The cecum, cecal bulb, and ascending colon were unremarkable. In the transverse colon, there was a 5 mm polyp removed with a cold snare. The polyp was retrieved. Minimal bleeding was noted. The remainder of the transverse colon, descending colon, sigmoid colon, and rectum were otherwise unrevealing. Forward and J-turn views of the rectum and anorectum were unrevealing other than some internal hemorrhoids being noted. The endoscope was straightened, the rectal ampulla deflated, and the endoscope was removed. RECOMMENDATIONS: We will await the results of tissue histology. in the meantime, would suggest the patient undergo an abdominal ultrasound to further evaluate her abdominal symptoms. As always, thank you for allowing me to participate in the healthcare of your patients. SRUTHI
== END 2019-03-01 14:55 | disposition home or self-care (01) ==
LOC: HOP 13:14
PROVIDERS: ATTEND Internal Medicine Gastroenterology
DX: R10.9 Unspecified abdominal pain (principal); K59.00 Constipation, unspecified; D12.3 Benign neoplasm of transverse colon; K21.9 Gastro-esophageal reflux disease without esophagitis; R10.13 Epigastric pain; R12 Heartburn; K44.9 Diaphragmatic hernia without obstruction or gangrene; J44.9 Chronic obstructive pulmonary disease, unspecified; E78.00 Pure hypercholesterolemia, unspecified